=== PATIENT | female | born 1965 | race Caucasian/White ===

== ENCOUNTER → 2017-01-25 | Outpatient (CLI) | payer BC ==
[~2017-01-25] MED LIST: [UNRECOGNIZED DRUG - REMARK]
--- NOTE | ~2017-01-25 | CT114 ---
[facility] A Service of [facility] / [facility] RADIOLOGY TEXT RESULTS PATIENT: CARMENZA THAPA LOCATION: [facility] : 65 UNIT #: [id number] AGE: [address]: Nuria Bro MD SEX: F ORDER DR: [id number] [address] [address] [id number] O MR#: [id number] [facility] #: [id number] NAME: CARMENZA THAPA : 1965 SEX: F STUDY DATE/TIME: 01/25/2017 16:53 UNIT: [facility] ROOM: STUDY DESCRIPTION: CT Soft Tissue Neck W Cont Attending Physician: Nuria Bro M.D. Ordering Physician: Nuria Bro M.D. Primary Care Physician: Nuria Bro M.D. MEDICAL IMAGING REPORT This report is preliminary unless electronic signature is present. EXAM Soft tissue neck CT with IV contrast, 01/25/2017 PROCEDURE Axial contrast-enhanced soft tissue neck CT with multiplanar reformats. This CT exam was performed with one or more of the following radiation dose reduction techniques: automatic exposure control, adjustment of mA and/or kV according to patient size, and iterative reconstruction. COMPARISON Soft tissue neck ultrasound, 11/30/2015 CLINICAL HISTORY Low right neck mass. FINDINGS A cutaneous marker was placed over the palpable abnormality. There is no definite imaging correlate based on placement of the cutaneous marker. There is a minimally prominent right anterior jugular vein as a normal variant. On the posterior border of the right thyroid lobe there is a small nodule measuring about 8.0 x 7.0 mm on the axial images and about 14.0 mm in craniocaudal dimension. There might be an exophytic thyroid nodule but is probably a small parathyroid gland. No other possible adenopathy or other nodule is seen. The bony structures are unremarkable. The lung apices and upper mediastinum are normal. IMPRESSION 1. No definite imaging correlate for the palpable abnormality. 2. Small lesion/nodule along the posterior border of the right lobe of [facility] A Service of [facility] / [facility] RADIOLOGY TEXT RESULTS PATIENT: CARMENZA THAPA LOCATION: [facility] : 65 UNIT #: [id number] AGE: [address]: Nuria Bro MD SEX: F ORDER DR: the thyroid gland is probably extrathyroidal possibly even a parathyroid gland measuring about 8.0 x 7.0 x 14.0 mm. Significance uncertain. 3. Otherwise normal negative soft tissue neck CT with contrast. Dictated by... Flex Oropeza M.D. THIS IS AN ELECTRONICALLY VERIFIED REPORT Flex Oropeza M.D. at 01/26/2017 4:05 PM ALYSON/soni TD: 01/26/2017 08:36 JOB #: [id number] MEDICAL IMAGING REPORT Page 1 of 1
== END | disposition home or self-care (01) ==
LOC: SCT 16:33
DX: R22.1 Localized swelling, mass and lump, neck (principal); E07.89 Other specified disorders of thyroid
CPT/HCPCS: 70491; Q9967